=== PATIENT | male | born 1950 | race Caucasian/White ===

== ENCOUNTER 2021-09-08 09:13 | Emergency (ER) | payer MEDICARE, BC, SELFPAY ==
[2021-09-08 09:21] VITALS: BP 139/81; PULSE 48; RESP 16; TEMP 36.9; O2SAT 97
[2021-09-08 10:41] LABS: Add Urine Microscopic? YES; Appearance Urine Cloudy (Clear); Bacteria Urine Trace /hpf; Bilirubin Urine Negative (Negative); Blood Urine Negative (Negative); Color Urine Amber (Yellow); Glucose Urine UA Negative (Negative); Ketones Urine Negative (Negative); Leukocyte Esterase Ur 1+ LEU/UL (Negative); Mucus Urine Rare /lpf; Nitrate Urine Negative (Negative); Protein Urine Negative (Negative); RBC Urine 0-2 /hpf (0-2); Specific Grav Ur 1.021 (1.001-1.035); Squamous Epithelial Cell Urine Rare /hpf (Few); WBC Urine 31-50 /hpf
--- NOTE | 2021-09-08 10:46 | ED.GENADULT ---
HPI - General Adult General Chief complaint: Urogenital-Male Stated complaint: uti? Time Seen by Provider: 09/08/21 10:20 Source: patient Mode of arrival: ambulatory Limitations: no limitations History of Present Illness HPI narrative: Patient is 71 years old white male presents with painful urination started yesterday associated with frontal headache, patient denies having similar symptoms, patient had Tylenol last night with good improvement. Headache was 10 out of 10 at that time, currently 1 out of 10. Patient denies any fever, chills, nausea, vomiting, focal neuro deficit. Patient is fully vaccinated and boosted 2 months ago Related Data Home Medications Medication Instructions Recorded Confirmed aspirin 09/08/21 09/08/21 budesonide-formoterol INHALATION 09/08/21 clopidogrel 09/08/21 losartan 09/08/21 rosuvastatin mg 09/08/21 venlafaxine mg PO 09/08/21 Allergies Allergy/AdvReac Type Severity Reaction Status Date / Time No Known Allergies Allergy Verified 09/08/21 09:30 Review of Systems Review of Systems: CONSTITUTIONAL: Denies fever, chills, or sweats. EYES: Denies visual changes, redness, or discharge. ENT: Denies rhinorrhea, congestion, sore throat, or otalgia. CARDIOVASCULAR: Denies chest pain, palpitations, or edema. RESPIRATORY: Denies cough or dyspnea. GASTROINTESTINAL: Denies abdominal pain, nausea, vomiting, or diarrhea. GENITOURINARY: Denies dysuria or hematuria. SKIN: Denies rash or itching. MUSCULOSKELETAL: Denies back pain, joint pain, or myalgia. NEUROLOGIC: Denies headache, numbness, or weakness. PSYCHIATRIC: Denies anxiety or depression. Exam Narrative: General appearance: Well-developed, well-nourished Skin: Normal color Head: Normocephalic, nontraumatic Eyes: Clear conjunctiva ENT: Oropharynx normal, ears normal, nose normal Neck: Supple, nontender Chest and respiratory: Airway patent, no respiratory distress, no accessory muscle use Heart: Regular rate/rhythm Abdomen: Soft, nontender, no organomegaly, quiet bowel sounds Vascular: Normal peripheral pulses, normal capillary refill. Musculoskeletal: Normal range of motion, nontender back Neurologic: Alert and oriented ?3, [employer] is normal as tested, no gross motor deficit Course Course Emergency Course: Stable Vital Signs Vital signs: Vital Signs Temperature 36.9 C 09/08/21 09:21 Pulse Rate 48 L 09/08/21 09:21 Respiratory Rate 16 09/08/21 09:21 Blood Pressure 139/81 09/08/21 09:21 Pulse Oximetry 97 09/08/21 09:21 Temperature 36.9 C 09/08/21 09:21 Pulse Rate 48 L 09/08/21 09:21 Respiratory Rate 16 09/08/21 09:21 Blood Pressure 139/81 09/08/21 09:21 Pulse Oximetry 97 09/08/21 09:21 Medical Decision Making MDM Narrative Medical decision making narrative: Urinary tract infection is my concern. Patient headache high likely secondary to the urinary tract infection, last Tylenol use was last night, the headache right now is 1 out of 10 which is insignificant. Differential Diagnosis Differential Diagnosis: Urinary tract infection, electrolyte imbalance Vital Signs Vital Signs: Vital Signs Temperature 36.9 C 09/08/21 09:21 Pulse Rate 48 L 09/08/21 09:21 Respiratory Rate 16 09/08/21 09:21 Blood Pressure 139/81 09/08/21 09:21 Pulse Oximetry 97 09/08/21 09:21 Temperature 36.9 C 09/08/21 09:21 Pulse Rate 48 L 09/08/21 09:21 Respiratory Rate 16 09/08/21 09:21 Blood Pressure 139/81 09/08/21 09:21 Pulse Oximetry 97 09/08/21 09:21 Lab Data Labs: Lab Results 09/08/21 Range/Units 10:31 Urine Color Evelyn (Yellow) Urine Appearance Cloudy H (Clear) Urine pH 5.0 (5.0-
[2021-09-08 11:00] LABS: Basophils Absolute Auto 0.1 K/mm3 (0.0-0.1); Basophils Percent Auto 0.3 % (0.2-1.2); Hematocrit 48.4 % (42.0-52.0); Hemoglobin 16.4 g/dL (14.0-18.0); Immature Granulocyte Percent A 0.5 % (0-0.5); Lymphocytes Absolute Auto 1.59 K/mm3 (0.9-3.2); Lymphocytes Percent Auto 8.7 % (18.3-44.2); Mean Corpuscular HGB Conc 33.9 g/dl (32-36); Mean Corpuscular Hemoglobin 32.3 pg (26-34); Mean Corpuscular Volume 95.3 fl (80-100); Mean Platelet Volume 10.5 fl (7.4-10.4); Monocytes Absolute Auto 2.1 K/mm3 (0.1-0.6); Monocytes Percent Auto 11.5 % (2.6-8.5); Neutrophils Absolute Auto 14.4 K/mm3 (1.3-6.7); Platelet Count Result 194 k/mm3 (150-375); Red Blood Count 5.08 M/mm3 (4.6-6.20); Red Cell Distribution Width 13.1 % (11.5-14.5); White Blood Count 18.2 K/mm3 (4.5-10.0)
[2021-09-08 11:11] LABS: Alanine Aminotransferase 21 U/L (4-50); Albumin Level 4.3 g/dL (3.5-5.1); Alkaline Phosphatase 63 U/L (38-126); Anion Gap 8 mmol/L (8-16); Aspartate Amino Transferase 21 U/L (17-59); Bilirubin,Total 0.7 mg/dL (0.2-1.3); Blood Urea Nitrogen 15 mg/dL (9-20); Calcium 9.1 mg/dL (8.4-10.2); Carbon Dioxide 24 mmol/L (22-30); Chloride 101 mmol/L (98-107); Estimated CRCL calculation 65 ml/min; Estimated Glomerular Filt Rate > 60; Glucose 119 mg/dL (65-110); Potassium 4.2 mmol/L (3.4-5.0); Sodium 133 mmol/L (137-145)
--- NOTE | 2021-09-08 11:21 | ECG_ITS ---
Measurements Intervals [place] Rate: 97 P: -61 AL: 191 QRS: 68 QRSD: 117 T: -55 QT: 347 QTc: 443 Interpretive Statements ECTOPIC ATRIAL RHYTHM ATRIAL AND VENTRICULAR PREMATURE COMPLEXES BORDERLINE ST-T WAVE ABNORMALITY- INFERIOR LEADS ABNORMAL ECG Electronically Signed On 09-08-2021 14:38:52 MANAGER AUDIO by Noé Sams D.O.
[2021-09-08 12:01] VITALS: BP 138/77; PULSE 68; RESP 18; O2SAT 99
== END 2021-09-08 12:03 | disposition home or self-care (01) ==
PROVIDERS: Emergency Provider Emergency Medicine
DX: N39.0 Urinary tract infection, site not specified (principal); Z79.82 Long term (current) use of aspirin; I49.1 Atrial premature depolarization; I49.3 Ventricular premature depolarization
CPT/HCPCS: 36415; 80053; 81001; 85025; 87077; 87086; 87088; 87186; 93005; 96365; 99284; J0696